=== PATIENT | female | born 1965 | race Caucasian/White ===

== ENCOUNTER 2016-07-05 15:39 | Emergency (ER) | payer BC ==
[2016-07-05 15:55] VITALS: BP 120/67
--- NOTE | 2016-07-05 16:38 | UC ---
Knee Pain HPI - HPI Summary HPI Summary: 50 female presents with complaints of left knee pain that began early this morning while sleeping in bed. She states she twisted and heard a "pop". Pain increases with walking and bearing weight, however she is able too. She states she was at a chiropracter appointment yesterday for her hip and she feels as though she was over-stretched causing some hyperextension in her knee and tweeked it while sleeping. Denies any swelling, bruising or redness. Did not fall and no other recent trauma. Denies history of knee problems and arthritis. Tried icing it and she took an Advil. Also was wearing a knee brace. She states "She doesn't think its that bad" but wanted to get it checked out. Denies hip and ankle pain. Points to the pain at lateral left knee. - History of Current Complaint Chief Complaint: UCLowerExtremity Stated Complaint: KNEE COMPLAINT Time Seen by Provider: 07/05/16 16:14 Hx Obtained From: Patient Hx Last Menstrual Period: 1 WEEK AGO ?: No Onset/Duration: Sudden Onset Severity Initially: Mild Severity Currently: Mild Pain Intensity: 5 Pain Scale Used: 0-10 Numeric Character: Sharp, Aching Aggravating Factor(s): Movement, Weight Bearing Alleviating Factor(s): Rest, Position, Cold, OTC Meds Associated Signs And Symptoms: Positive: Negative Able to Bear Weight: Yes - Allergies/Home Medications Allergies/Adverse Reactions: Allergies Allergy/AdvReac Type Severity Reaction Status Date / Time No Known Allergies Allergy Verified 02/11/14 13:54 Home Medications: Home Medications Ibuprofen [Advil] 600 mg PO 07/05/16 [History] Misc Natural Products [Green Tea] 1 tab PO 07/05/16 [History] Pyridoxine HCl [Vitamin B-6] 25 mg PO 07/05/16 [History] PMH/Surg Hx/FS Hx/Imm Hx Respiratory History Of: Reports: Bronchitis - Surgical History Surgical History: Yes Surgery Procedure, Year, and Place: C SECTION. 2 LUMPECTOMIES- RIGHT BREAST- ATYPICAL CELLS- 11/2012&05/2013-[place]-. RIGHT LEG- POOLE-2013 - Family History Known Family History: Positive: None - Social History Alcohol Use: Rare Substance Use Type: None Smoking Status (MU): Never Smoked Tobacco - Immunization History Vaccination Up to Date: Yes Review of Systems Constitutional: Negative Respiratory: Negative Cardiovascular: Negative Motor: Negative Neurovascular: Negative Musculoskeletal: Arthralgia, Myalgia - left knee Neurological: Negative Psychological: Negative All Other Systems Reviewed And Are Negative: Yes Physical Exam Triage Information Reviewed: Yes Appearance: Well-Appearing, No Pain Distress, Well-Nourished Vital Signs: Initial Vital Signs Temp 98.1 F 07/05/16 15:50 Pulse 69 07/05/16 15:50 Resp 18 07/05/16 15:50 BP 120/67 07/05/16 15:50 Pulse Ox 98 07/05/16 15:50 Vital Signs Reviewed: Yes Eyes: Positive: Conjunctiva Clear ENT: Positive: Normal ENT inspection, Hearing grossly normal Neck: Positive: Supple, Nontender Respiratory: Positive: Chest non-tender, Lungs clear, Normal breath sounds, No respiratory distress, No accessory muscle use Cardiovascular: Positive: RRR, No Murmur, Pulses Normal - 2+ pedal, Brisk Capillary Refill Musculoskeletal: Positive: Strength Intact, ROM Intact, No Edema, Other: - minimal ecchymosis of left knee, lateral to patella. tender on palpation of LCL , lateral knee. no laxity noted on knee tests. strength sensation and circulation intact. (-) homans sign. no calf tenderness. skin intact. no crepitus, obvious deformity or step-off Neurological: Positive: Alert, Muscle Tone Normal Psychological Exam: Normal Skin Exam: Normal Skin: Positive: Other - minimal ecchymosis noted at lateral left knee Diagnostics - Radiology left knee Xray Interpretation: No Acute Changes - AC joint arthritis without evidence of fracture. Radiology Interpretation Completed By: Radiologist Knee Pain Course/Dx - Course Course Of Treatment: Patient appears to have sustained a knee sprain or hyperextension. will be treated with knee immobilizer, RICE and NSAIDs. She is aware of worsening signs and symptoms to watch out for. Follow up with pcp. - Differential Dx/Diagnosis Differential Diagnosis/HQI/PQRI: Contusion, Dislocation, Fracture (Closed), Sprain, Strain, Tendonitis, Other Provider Diagnoses: left knee pain, left knee sprain Discharge - Discharge Plan Condition: Stable Disposition: HOME Patient Education Materials: Knee Pain (ED), Knee Sprain (ED) Referrals: Ana Sauceda NP [Primary Care Provider] - Additional Instructions: Take OTC Aleve as needed for pain and inflammation. Recommend taking for the next couple of days. Rest and ice your knee 20 minutes on and 20 minutes off multiple times daily. Elevate to prevent swelling. Wear brace for the next couple of days to help with support. After a few days try a heating pad on your knee in the morning to help loosen muscles and ice at night. Refrain from strenuous physical activity. IF your symptoms worsen, new symptoms develop or they persist please seek medical attention as further imaging/evaluation may be needed. Follow up with your PCP.
--- NOTE | 2016-07-05 16:54 | RAD ---
Indication: Left knee injury. 4 views of left knee demonstrates AC joint arthritis. There is no fracture or dislocation. No other bone or joint abnormality is noted. IMPRESSION: AC joint arthritis without evidence of fracture.
== END 2016-07-05 17:10 | disposition home or self-care (01) ==
LOC: UCEAST 15:39
DX: S83.92XA Sprain of unspecified site of left knee, initial encounter (principal); X50.1XXA Overexertion from prolonged static or awkward postures, initial encounter; M25.562 Pain in left knee; Z87.09 Personal history of other diseases of the respiratory system
CPT/HCPCS: 99211; G0463

== ENCOUNTER → 2017-11-18 06:40 | Day surgery (SDC) | payer BC ==
--- NOTE | 2017-10-31 18:13 | HP ---
CC: Ana Sauceda NP at [facility]* ADMISSION HISTORY AND PHYSICAL: DATE OF ADMISSION/SURGERY: 11/18/17 ATTENDING SURGEON: Dr. Terrell Acosta* (dictated by KATTY Juan). CHIEF COMPLAINT: Symptomatic cholelithiasis. HISTORY OF PRESENT ILLNESS: This is a generally healthy 52-year-old female who for the past 2 years has had intermittent abdominal symptoms. Symptoms include bloating and discomfort across the upper abdomen with occasional radiation to the back. She will have some nausea, but has only vomited once. She notices symptoms particularly after fatty food ingestion. In recent months, the frequency of symptoms has increased. She denies any recent history of dark urine. There is no known family history of gallbladder disease. She does report some occasional loose stools. She underwent ultrasound scheduled by her PCP, which did confirm the presence of gallstones (that report is not immediately available to me). It apparently showed no evidence of acute cholecystitis or ductal dilatation. She states that there was a finding of fatty liver changes and a lesion in the liver possibly consistent with hemangioma. She was seen and examined by Dr. Acosta on 10/10/17. His impression was that of symptomatic cholelithiasis and he has recommended surgery. The patient understands the indications for surgery, the risks, benefits, and alternatives. She would like to proceed as scheduled with laparoscopic cholecystectomy. PAST MEDICAL HISTORY: No active or ongoing medical problems other than described in the HPI. PAST SURGICAL HISTORY: Previous surgeries include via low transverse incision, saphenous vein closure, and excision of a right breast lump (benign). CURRENT MEDICATIONS: 1. Multivitamin once daily. 2. B complex once daily. 3. NingXia Red beverage (the patient was instructed to hold for 3 days preoperatively). DRUG ALLERGIES: None known. FAMILY HISTORY: Negative for anesthesia problems, bleeding or clotting disorders. SOCIAL HISTORY: The patient is . She has 1 child. 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 She denies use of tobacco. Drinks 1 to 2 alcoholic drinks per month and denies any other recreational drug use. REVIEW OF SYSTEMS: General: No recent constitutional symptoms or acute illnesses other than described in the HPI. She does state that her weight is down about 8 pounds secondary to dietary modification. Eyes, Ears, Nose, Throat : No recent changes reported. Cardiovascular: No chest pain, palpitations, history of hypertension, or heart murmur. Respiratory: No history of asthma, chronic cough, or shortness of breath. GI: As above per HPI. She did undergo colonoscopy around age 46, which she states was a normal study with no interval problems reported. : No problems reported. ATHLETIC TEAM PHYSICIAN: She is up-to-date within the past year for breast and pelvic exams including mammogram and Pap smear, all reportedly normal. Endocrine: No diabetes or thyroid dysfunction. Remainder of review of systems is negative. PHYSICAL EXAMINATION GENERAL: Well-nourished, well-developed female, in no acute distress. VITAL SIGNS: Height 5 feet 2 inches, weight 127 pounds. Temperature 97.9, blood pressure 115/64, pulse 68. HEENT: Pupils are equal, round, and reactive. EOMs intact. No conjunctival pallor or scleral icterus. Oropharynx: Teeth in good repair. No intraoral lesions. NECK: No lymphadenopathy, thyromegaly, or masses. LUNGS: Clear to auscultation. No rales or wheezes. HEART: Regular rate and rhythm. No murmur noted. BREASTS: No examined. ABDOMEN: Soft, nontender to palpation. No palpable masses or organomegaly. GENITALIA: Not done. RECTAL: Not done. BACK: No spinous process or CVA tenderness. EXTREMITIES: No edema. NEUROLOGICAL: Grossly intact. SKIN: Warm and dry. No suspicious rashes or lesions noted. IMPRESSION: Symptoms cholelithiasis. PLAN: Laparoscopic cholecystectomy. KATTY JUAN [id number]/[facility] #: [id number] [facility] CENTERClarice
[~2017-11-18 06:40] MED LIST: Buffered Lidocaine 0.9% SYRIN* 5 ML/SYR SYRINGE INTRADERM ONE; Dexamethasone IV* 4 MG/ML 1 ML (4 MG) ONE; Glycopyrrolate IV* 0.2 MG/ML 1 ML VIAL ONE; HYDROcodone/ACETAMIN 5-325 MG* 1 TAB ONE; HYDROcodone/ACETAMIN 5-325 MG* 1 TAB PO PRN; Ketorolac INJ* 30 MG/ML 1 ML VIAL ONE; Lidocaine 2% PF * 5 ML VIAL ONE; Midazolam* 1 MG/ML 2 ML VIAL (2 MG) ONE; Naloxone* 0.4 MG/ML 1 ML VIAL IV PRN; Neostigmine Methylsulfate* 1 MG/ML 10 ML VIAL (1 mg/ml) ONE; Ondansetron INJ* 2 MG/ML VIAL IV PRN; Ondansetron INJ* 2 MG/ML VIAL ONE; Propofol* 10 MG/ML 20 ML BTL IV PUSH ONE; ROPIVACAINE 5 MG/ML 30 ML BTL (0.5%) ONE; Rocuronium* 10 MG/ML VIAL ONE; Sodium Citrate/Citric Acid* 15 ML UDC ONE; Sodium Citrate/Citric Acid* 15 ML UDC PO ONE; ceFAZolin 1 GM VIAL(*) ONE; fentaNYL* 50 MCG/ML 2 ML VIAL (100 MCG VIAL) IV PRN; fentaNYL* 50 MCG/ML 2 ML VIAL (100 MCG VIAL) ONE
--- NOTE | 2017-11-18 10:21 | OP ---
Operative Report - Blank - Operative Report Date of Operation: 11/18/17 Note: Brief Operative Note Preop Dx:symptomatic cholelithiasis Postop Dx: acute on chronic calculous cholecystitis Procedure: laparoscopic cholecystectomy Anesthesia: GET Surgeon: Dave Payroll Administrator: KATTY Lucas Fluids: 1400 ml EBL: < 100 ml Specimen: gallbladder Drains: none Findings: dictated
[2017-11-18 12:10] VITALS: BP 130/70
--- NOTE | 2017-11-19 21:42 | OP ---
CC: Ana Sauceda NP * DATE OF OPERATION: 11/18/17 - [facility] DATE OF : 61 SURGEON: Terrell Acosta MD. MONORAIL HOOKER: KATTY Juan. ANESTHESIOLOGIST: Ariel Alston DO. ANESTHESIA: General endotracheal. PRE-OP DIAGNOSIS: Symptomatic cholelithiasis. POST-OP DIAGNOSIS: Acute on chronic calculous cholecystitis. OPERATIVE PROCEDURE: Laparoscopic cholecystectomy. ESTIMATED BLOOD LOSS: Less than 100 mL. IV FLUIDS: 1.4 liters crystalloids. SPECIMENS: Gallbladder. DRAINS: None. COMPLICATIONS: None. COUNTS: Instrument, needle, sponge counts were correct. DESCRIPTION OF PROCEDURE: The patient was brought to the operating room, placed on the table supine. Sequential compression devices were placed on both lower extremities. General anesthesia was administered. The patient was positioned and padded appropriately. She was prepped and draped in usual sterile fashion. A time-out was performed. Local anesthetic was infiltrated into the skin and soft tissue prior to making each incision. Entry to the abdomen was through a infraumbilical curvilinear incision due to the fact that the patient had a umbilical hernia. After elevating the umbilical stalk from the anterior abdominal wall, umbilical hernia defect was identified measuring 1 cm and this was used for access to the peritoneal cavity. A 12-mm trocar was placed. Carbon dioxide was insufflated to a pressure of 15 mmHg and then a laparoscope was introduced . The gallbladder appeared to be pink and inflamed. 5-mm trocars were placed in the subxiphoid position and two additional in the right upper quadrant. The gallbladder was retracted superiorly and adhesions to the omentum were taken down using a combination of sharp dissection, blunt dissection and cautery. There were several large, immobile stones within the gallbladder. The gallbladder infundibulum was difficult to grasp, but ultimately was able to be maneuvered so that the peritoneum and the rest of the gallbladder could be incised both on the medial and lateral aspects to identify the cystic duct, gallbladder junction. This was bluntly dissected out and then the cystic artery was also identified and bluntly dissected out. The duct and artery were each doubly clipped, divided and then dissection of the gallbladder was performed using a cautery. Due to the bulky nature of the gallbladder and its inflamed condition, this made dissection more difficult than would be typical. Portions of the liver were entered during the dissection necessitating additional clip placement for hemostasis. Ultimately, the gallbladder was freed from attachments to the liver but there was an inadvertent cholecystomy created with spillage controlled with endoscopic suction. Once the gallbladder was freed, it was placed in the endoscopic retrieval bag and retrieved through the umbilical site. The umbilicus was widened slightly in both lateral directions in order to extricate the gallbladder with the large stones. The umbilical wound was then closed in an interrupted fashion with 0 Vicryl sutures in interrupted [id number] fashion closing the hernia defect. The umbilical stalk was reapproximated to the anterior abdominal wall and this was done with 3-0 Vicryl. The peritoneal cavity was inspected. Hemostasis was excellent. Clips were noted to be intact. Lavage was performed until clear. Remaining ports were removed and carbon dioxide was released. Skin incisions were closed with 4-0 Monocryl in subcuticular fashion and Steri-Strips were applied. The patient tolerated this procedure well, was extubated, and transferred to recovery room in a stable condition. [id number]/[facility] #: [id number] JESSY
== END | disposition home or self-care (01) ==
LOC: OR 06:40
PROVIDERS: ATTEND Surgery
DX: K80.12 Calculus of gallbladder with acute and chronic cholecystitis without obstruction (principal)
CPT/HCPCS: 81025; 88304; A9270-GY; J0690; J1100; J1885; J2250; J2405; J2704; J2710; J2795; J3010